=== PATIENT | female | born 1995 | race African-American/Black ===

== ENCOUNTER 2018-12-09 11:28 | Observation (INO) | payer OTHER ==
[2018-12-09] MEDS ORDERED: IV RINGERS,LACTATED 1000ML 1,000 ML IV PRN (12:15)
[2018-12-09 13:42] LABS: BILIRUBIN,URINE SMALL (NEG); CLARITY,URINE CLEAR; COLOR,URINE AMBER; NITRITE,URINE NEGATIVE (NEG); PH,URINE 6.5; PROTEIN,URINE 30 mg/dL (NEG-TRACE)
[2018-12-09 13:55] LABS: SQUAMOUS EPITHELIAL CELL,UR MANY /LPF
[2018-12-09 13:56] LABS: BACTERIA,URINE MANY /HPF (0-FEW); RBC,URINE 0 /HPF (0-2); WBC,URINE >40 /HPF (0-4)
== END 2018-12-09 18:06 | disposition home or self-care (01) ==
LOC: 3 SO LND 11:28
PROVIDERS: ADMIT Obstetrics & Gynecology; ATTEND Obstetrics & Gynecology
DX: O21.2 Late vomiting of pregnancy (principal); O62.9 Abnormality of forces of labor, unspecified; Z3A.35 35 weeks gestation of pregnancy
CPT/HCPCS: 81001; 87086; G0378; G0379